=== PATIENT | male | born 1950 | race Caucasian/White ===

== ENCOUNTER → 2020-01-21 | Outpatient (CLI) | payer OTHER | LOC: CAT 12:42 | PROVIDERS: ATTEND Family Medicine | DX: Z13.6 Encounter for screening for cardiovascular disorders (principal); I25.10 Atherosclerotic heart disease of native coronary artery without angina pectoris; E78.00 Pure hypercholesterolemia, unspecified ==

== ENCOUNTER 2020-01-27 00:36 | Emergency (ER) | payer OTHER ==
[~2020-01-27] VITALS: Ht 175.3 cm; Wt 81.7 kg
[2020-01-27] MEDS ORDERED: RAMIPRIL5 MG PO (00:46)
[2020-01-27] MEDS ORDERED: ATORVASTATIN CA20 MG PO (00:46)
[2020-01-27 01:10] LABS: ABSOLUTE NEUTROPHILS 3.5 thou/uL (1.4-8.2); BASOPHILS 0.8 % (0.0-2.0); EOSINOPHILS 2.6 % (0.0-3.0); HEMATOCRIT 43.6 % (42.0-52.0); HEMOGLOBIN 14.9 gm/dL (14.0-18.0); LYMPHOCYTES 21.4 % (24.0-44.0); MCH 29.9 pg (26.0-34.0); MCHC 34.2 g/dL (28.0-37.0); MCV 87.4 fL (80.0-100.0); MONOCYTES 10.8 % (1.0-8.0); PLATELET COUNT 212 thou/uL (150-400); POLYS 64.4 % (36.0-66.0); RBC 4.99 mil/uL (4.50-6.00); WBC 5.4 thou/uL (4.0-11.0)
[2020-01-27 01:15] LABS: ANION GAP 13 mmol/L (7-16); BUN 24 mg/dL (7-18); CALCIUM 9.2 mg/dL (8.5-10.1); CHLORIDE 104 mmol/L (98-107); CO2 27 mmol/L (21-32); CREATININE 1.6 mg/dL (0.7-1.3); GLUCOSE 112 mg/dL (74-106); SODIUM 144 mmol/L (136-145)
[2020-01-27 01:26] LABS: ALBUMIN 4.1 g/dL (3.4-5.0); SGOT 21 U/L (15-37); SGPT 27 U/L (30-65); TOTAL BILIRUBIN 0.4 mg/dL (0.2-1.0); TOTAL PROTEIN 7.8 g/dL (6.4-8.2); TROPONIN-I <0.06 ng/mL (<0.06)
[2020-01-27 06:06] VITALS: BP 138/82
--- NOTE | 2020-01-27 08:42 | EKG ---
[facility] [place] [address] ELECTROCARDIOGRAM REPORT Name: RITU LEON Room #: DEP [facility]#: [id number] Admission: 01/27/20 Attend Phys: Discharge: 01/27/20 Date of : 48 Report #: [id number] THIS REPORT FOR: cc: Pedro Veronica MD, David P. MD Lundgren,Jeffery Dsouza MD [facility] ~ THIS REPORT FOR: //name// [facility] ED Test Date: 2020-01-27 Test Time: 00:43:12 Pat Name: RITU LEON Department: Room: Gender: Tongue Presser: [facility] : 1950 Requested By: Kenny Wilson Order Number: [id number] MD: Jeffery Hoover Measurements Intervals [place] Rate: 67 P: 45 UT: 199 QRS: -62 QRSD: 92 T: 65 QT: 395 QTc: 417 Interpretive Statements Sinus rhythm Left anterior fascicular block Poor R wave progression No previous ECG available for comparison Electronically Signed On 01-27-2020 8:42:02 CDT by Jeffery Hoover [email or web address] <ELECTRONICALLY SIGNED> By: Jeffery Hoover MD, FAC 01/27/20 0842 0043 Jeffery Hoover MD, [facility] /EPI
== END 2020-01-27 06:07 | disposition home or self-care (01) ==
LOC: ER 00:36
PROVIDERS: Emergency Medicine
DX: R07.89 Other chest pain (principal); Z79.899 Other long term (current) drug therapy

== ENCOUNTER → 2020-02-03 | Outpatient (CLI) | payer OTHER ==
[~2020-02-03] MED LIST: ATORVASTATIN CA20 MG PO; RAMIPRIL5 MG PO
== END ==
LOC: SJCVCIMAG 11:10
PROVIDERS: ATTEND Internal Medicine
DX: R07.9 Chest pain, unspecified (principal); R93.1 Abnormal findings on diagnostic imaging of heart and coronary circulation; I10 Essential (primary) hypertension; E78.5 Hyperlipidemia, unspecified